=== PATIENT | female | born 1945 | race Caucasian/White ===

== ENCOUNTER 2017-03-06 10:26 | Emergency (ER) | payer OTHER, MEDICAID ==
[~2017-03-06] VITALS: Ht 154.9 cm; Wt 75.0 kg
[2017-03-06 10:42] VITALS: BP 151/78
--- NOTE | 2017-03-06 11:00 | NUR ---
Pt taken to bed 3.
--- NOTE | 2017-03-06 11:30 | NUR ---
Patient being evaluated by physician at bedside.
[2017-03-06] MEDS ORDERED: NACL 0.9% 1,000 ML IV ONE (11:35)
[2017-03-06] MEDS ORDERED: fentaNYL 0.05 MG/ML VIAL IVP ONE (12:15)
[2017-03-06 14:05] VITALS: BP 149/82
== END 2017-03-06 14:00 | disposition home or self-care (01) ==
LOC: MED 10:26
DX: M79.622 Pain in left upper arm (principal); I10 Essential (primary) hypertension
CPT/HCPCS: 36415; 70450; 71250; 80053; 83605; 83880; 84484; 85025; 85610; 85730; 87040; 93005; 96361; 96374; 99285; J3010

== ENCOUNTER 2017-03-08 10:02 | Emergency (ER) | payer OTHER, MEDICAID ==
[~2017-03-08] VITALS: Ht 165.1 cm; Wt 72.6 kg
[2017-03-08 10:18] VITALS: BP 136/64
--- NOTE | 2017-03-08 10:19 | NUR ---
PT AMBULATED TO BED 8.
--- NOTE | 2017-03-08 10:24 | NUR ---
71F BIB FAMILY C/O RASH TO RT ARM, RADIATES TO NECK, PT DESCRIBES PAIN "PINCHING", 6/10 X 2 DAYS; REDNESS/SLIGHTLY RAISED RASH NOTED TO RT FOREARM/RT HAND AT THIS TIME; RT RADIAL PULSE PALPABLE, RT CAP REFILL < 2 SECONDS, NO LOSS OF SENSATION TO RT ARM AT THIS TIME; PT DENIES ALLERGIES OR TRAUMA OR INJURY TO SITE AT THIS TIME; PT STATES WAS SEEN IN ER 2 DAYS AGO FOR DIZZINESS AND ARM PAIN, AND RIGHT ARM PLACED IN SLING AT THAT TIME; PT A&OX4, PERRLA, BL LUNG SOUNDS CLEAR, RR EVEN/UNLABORED, BL EQUAL RISE/FALL OF CHEST NOTED AT THIS TIME; PT STATES HAS NO NAUSEA/VOMITING/DIARRHEA AT THIS TIME; STEADY GAIT; PT RESTING IN BED W/ HOB ELEVATED AND IN LOWEST POSITION; POSITIONED FOR COMFORT; ER MD MADE AWARE OF STATUS. WILL CONTINUE TO MONITOR.
--- NOTE | 2017-03-08 10:47 | NUR ---
Dr. Delgado evaluating patient at bedside.
[2017-03-08 12:10] VITALS: BP 119/66
--- NOTE | 2017-03-08 12:10 | NUR ---
Patient discharged with v/s stable. Written and verbal after care instructions given and explained. Patient alert, oriented and verbalized understanding of instructions. Ambulatory with steady gait. All questions addressed prior to discharge. ID band removed. Patient advised to follow up with PMD. Rx of VALTREX 1G TAB & NORCO 7.5MG-325MG TAB given. Patient educated on indication of medication including possible reaction and side effects. Opportunity to ask questions provided and answered.
== END 2017-03-08 12:10 | disposition home or self-care (01) ==
LOC: MED 10:02
DX: B02.9 Zoster without complications (principal); I10 Essential (primary) hypertension
CPT/HCPCS: 99283